=== PATIENT | male | born 1985 | race African-American/Black ===

== ENCOUNTER 2016-10-26 16:29 | Emergency (ER) | payer OTHER ==
[2016-10-26 16:52] VITALS: BP 139/78; PULSE 69; TEMP 98; BMI 27.7
[2016-10-26] MEDS ORDERED: IBUPROFEN 400 MG TABLET (FP) PO ONE ×2 (16:52→17:08)
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
[2016-10-26] MEDS ORDERED: CYCLOBENZAPRINE HCL 10 MG TABLET (FP) ONE (17:58)
[2016-10-26] MEDS ORDERED: CYCLOBENZAPRINE HCL 10 MG TABLET (FP) PO ONE (17:58)
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
== END 2016-10-26 18:43 | disposition home or self-care (01) ==
LOC: JERFT 16:29
DX: M25.562 Pain in left knee (principal); M25.511 Pain in right shoulder; V43.52XA Car driver injured in collision with other type car in traffic accident, initial encounter; Y92.411 Interstate highway as the place of occurrence of the external cause; Y93.89 Activity, other specified; Y99.8 Other external cause status
CPT/HCPCS: 99281-25

== ENCOUNTER 2017-02-25 15:37 | Emergency (ER) | payer OTHER ==
[2017-02-25 15:48] VITALS: BP 124/70; PULSE 71; TEMP 98.3; BMI 27.3
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
== END 2017-02-25 16:44 | disposition home or self-care (01) ==
LOC: JERFT 15:37
DX: S13.4XXA Sprain of ligaments of cervical spine, initial encounter (principal); S29.012A Strain of muscle and tendon of back wall of thorax, initial encounter; V43.52XA Car driver injured in collision with other type car in traffic accident, initial encounter; Y93.89 Activity, other specified; Y92.410 Unspecified street and highway as the place of occurrence of the external cause
CPT/HCPCS: 99281-25